=== PATIENT | male | born 1940 | race African-American/Black ===

== ENCOUNTER 2023-01-02 16:21 | Inpatient (IN) | payer OTHER ==
[2023-01-02 17:02] VITALS: BMI 31.9
[2023-01-02 17:59] LABS: PROTHROMBIN TIME (PATIENT) 11.6 SEC (9.7-13.0)
[2023-01-02 18:01] LABS: ACTIVATED PTT 31.1 SECONDS (25.2-36.5)
[2023-01-02 18:07] LABS: CHLORIDE 102 mmol/L (98-107); POTASSIUM 4.5 mmol/L (3.5-5.1); SODIUM 141 mmol/L (136-145)
[2023-01-02 18:08] LABS: MAGNESIUM 2.2 mg/dL (1.8-2.4)
[2023-01-02 18:09] LABS: ANION GAP 7 MMOL/L (8-16); CO2 33 mmol/L (21-32)
[2023-01-02 18:10] LABS: CALCIUM 9.2 mg/dL (8.5-10.1)
[2023-01-02 18:11] LABS: ALBUMIN 3.1 g/dl (3.4-5.0); BLOOD UREA NITROGEN 33.7 mg/dL (7-18); GLUCOSE,RANDOM 164 mg/dL (74-106)
[2023-01-02 18:13] LABS: SGOT/AST 27 U/L (15-37); SGPT/ALT 27 U/L (13-61)
[2023-01-02 18:14] LABS: CHOLESTEROL 193 mg/dL (50-200)
[2023-01-02 18:15] LABS: LDL CHOLESTEROL (ONLY SJRH) 114 mg/dL (5-100); TOT PROT 8.1 g/dl (6.4-8.2)
[2023-01-02 18:16] LABS: BILIRUBIN,TOTAL 0.3 mg/dL (0.2-1)
[2023-01-02 18:17] LABS: ALK PHOS 86 U/L (45-117); HDL CHOLESTEROL 60 mg/dL (40-60)
[2023-01-02] MEDS ORDERED: SODIUM CHLORIDE 0.9% 500 ML INFUS.BAG IV ONE (18:46)
[2023-01-02] MEDS ORDERED: ASPIRIN 81 MG CHEWABLE TABLETS PO ONE (19:03)
[2023-01-02 19:10] LABS: BASO % 0.4 % (0-2.0); EOS % 2.9 % (0-4.5); HEMOGLOBIN 13.8 GM/dL (11.7-16.9); LYMPH % 19.5 % (8-40); MCH 30.6 pg (25.7-33.7); MCHC 34.5 g/dl (32.0-35.9); MEAN CELL VOLUME 88.7 fl (80-96); MEAN PLT VOLUME 7.4 fl (7.5-11.1); MONO % 11.9 % (3.8-10.2); NEUT % 65.3 % (42.8-82.8); PLATELET COUNT 219 10^3/uL (134-434); RBC 4.51 M/mm3 (4.00-5.60); RDW 14.1 % (11.9-15.9); WHITE BLOOD COUNT 8.2 K/mm3 (4.0-10.0)
[2023-01-02 19:12] LABS: EPI CELLS 7 /uL (0-25.1); HYALINE CASTS 0 /uL (0-3.1); PH,URINE 6.5 (5.0-8.0); URINE APPEARANCE CLEAR; URINE BACTERIA 16 /uL (0-1359); URINE BILIRUBIN NEGATIVE (NEGATIVE); URINE COLOR YELLOW; URINE GLUCOSE (UA) NEGATIVE (NEGATIVE); URINE KETONE NEGATIVE (NEGATIVE); URINE LEUK ESTERASE NEGATIVE (NEGATIVE); URINE NITRITE NEGATIVE (NEGATIVE); URINE PROTEIN 2+ (NEGATIVE); URINE RBC 14 /uL (0-23.9); URINE UROBILINOGEN 0.2 mg/dL (0.2-1.0); URINE WBC 7 /uL (0-25.8)
[2023-01-02] MEDS ORDERED: ASPIRIN 81 MG CHEWABLE TABLETS ONE (19:17)
[2023-01-02] MEDS ORDERED: HYDROCHLOROTHIAZIDE 25 MG TABLET (FP) PO ONE (20:41)
[2023-01-02] MEDS ORDERED: amLODIPine BESYLATE 5 MG TABLET (FP) PO ONE (20:41)
[2023-01-02] MEDS ORDERED: amLODIPine BESYLATE 5 MG TABLET (FP) ONE (20:43)
[2023-01-02] MEDS ORDERED: HYDROCHLOROTHIAZIDE 25 MG TABLET (FP) ONE (20:44)
[2023-01-03] MEDS: SODIUM CHLORIDE 1,000 ML IV SCH (02:31)
[2023-01-03] MEDS: HEPARIN NA (PORCINE) 5,000 UNITS/ML 1ML VIAL SQ SCH ×3 (06:12→22:49)
[2023-01-03] MEDS: INSULIN SLIDING SCALE (NOVOLOG) 1 VIAL SQ SCH ×4 (06:16→22:50)
[2023-01-03 07:05] LABS: HEMATOCRIT 38.8 % (35.4-49); MCH 29.8 pg (25.7-33.7); MCHC 33.5 g/dl (32.0-35.9); MEAN CELL VOLUME 88.8 fl (80-96); MEAN PLT VOLUME 7.8 fl (7.5-11.1); PLATELET COUNT 244 10^3/uL (134-434); RBC 4.37 M/mm3 (4.00-5.60)
[2023-01-03 07:18] LABS: POTASSIUM 3.8 mmol/L (3.5-5.1)
[2023-01-03 07:24] LABS: CALCIUM 8.4 mg/dL (8.5-10.1); MAGNESIUM 1.9 mg/dL (1.8-2.4)
[2023-01-03 07:27] LABS: CREATININE 1.8 mg/dL (0.55-1.3); PHOSPHOROUS 3.5 mg/dL (2.5-4.9)
[2023-01-03 07:28] LABS: TOT PROT 7.6 g/dl (6.4-8.2)
[2023-01-03 07:31] LABS: BILIRUBIN,TOTAL 0.3 mg/dL (0.2-1)
[2023-01-03] MEDS: DIVALPROEX SODIUM 250 MG TABLET E.C. PO SCH ×2 (11:56→22:49)
[2023-01-03] MEDS: SERTRALINE HCL 25 MG TABLET (FP) PO SCH (11:56)
[2023-01-03] MEDS: ASPIRIN 81 MG CHEWABLE TABLETS PO SCH (11:56)
[2023-01-03] MEDS: FINASTERIDE 5 MG TABLET (FP) PO SCH (11:56)
[2023-01-03] MEDS: TAMSULOSIN HCL 0.4 MG CAP PO SCH (11:56)
[2023-01-03] MEDS ORDERED: metoPROLOL SUCCINATE 25 MG TAB.SR.24H (FP) PO ONE (15:51)
[2023-01-03] MEDS ORDERED: ATORVASTATIN CA 40 MG TABLET (FP) PO SCH (22:00)
[2023-01-03] MEDS ORDERED: DONEPEZIL HCL 5 MG TABLET (FP) PO SCH (22:00)
[2023-01-04] MEDS: SODIUM CHLORIDE 1,000 ML IV SCH (05:40)
[2023-01-04] MEDS: HEPARIN NA (PORCINE) 5,000 UNITS/ML 1ML VIAL SQ SCH ×2 (05:40→22:32)
[2023-01-04] MEDS: INSULIN SLIDING SCALE (NOVOLOG) 1 VIAL SQ SCH ×4 (06:36→22:34)
[2023-01-04] MEDS: TAMSULOSIN HCL 0.4 MG CAP PO SCH (09:31)
[2023-01-04] MEDS: DIVALPROEX SODIUM 250 MG TABLET E.C. PO SCH ×2 (09:31→22:36)
[2023-01-04] MEDS: SERTRALINE HCL 25 MG TABLET (FP) PO SCH (09:31)
[2023-01-04] MEDS: metoPROLOL SUCCINATE 25 MG TAB.SR.24H (FP) PO SCH (09:31)
[2023-01-04] MEDS: FINASTERIDE 5 MG TABLET (FP) PO SCH (09:31)
[2023-01-04] MEDS: ASPIRIN 81 MG CHEWABLE TABLETS PO SCH (09:31)
[2023-01-04] MEDS ORDERED: CLOPIDOGREL BISULFATE 75 MG TABLET (FP) PO ONE (11:29)
[2023-01-04] MEDS: ATORVASTATIN CA 80 MG TABLET (FP) PO SCH (22:36)
[2023-01-04] MEDS: ASCORBIC ACID 250 MG TABLET (FP) PO SCH (22:36)
[2023-01-04] MEDS: DONEPEZIL HCL 10 MG TABLET (FP) PO SCH (22:36)
[2023-01-05] MEDS: INSULIN SLIDING SCALE (NOVOLOG) 1 VIAL SQ SCH ×4 (06:07→22:37)
[2023-01-05] MEDS: ASPIRIN 81 MG CHEWABLE TABLETS PO SCH (10:18)
[2023-01-05] MEDS: DIVALPROEX SODIUM 250 MG TABLET E.C. PO SCH ×2 (10:18→22:36)
[2023-01-05] MEDS: TAMSULOSIN HCL 0.4 MG CAP PO SCH (10:18)
[2023-01-05] MEDS: FINASTERIDE 5 MG TABLET (FP) PO SCH (10:19)
[2023-01-05] MEDS: metoPROLOL SUCCINATE 25 MG TAB.SR.24H (FP) PO SCH (10:19)
[2023-01-05] MEDS: ASCORBIC ACID 250 MG TABLET (FP) PO SCH ×2 (10:19→22:37)
[2023-01-05] MEDS: CLOPIDOGREL BISULFATE 75 MG TABLET (FP) PO SCH (10:19)
[2023-01-05] MEDS: MULTIVITAMINS (DAILY MVI) TABLET (FP) PO SCH (10:19)
[2023-01-05] MEDS: HEPARIN NA (PORCINE) 5,000 UNITS/ML 1ML VIAL SQ SCH ×2 (10:19→22:36)
[2023-01-05] MEDS: LISINOPRIL 5 MG TABLET PO SCH (11:36)
[2023-01-05 13:21] LABS: BASO % 0.2 % (0-2.0); EOS % 1.5 % (0-4.5); HEMATOCRIT 38.5 % (35.4-49); HEMOGLOBIN 12.1 GM/dL (11.7-16.9); MCHC 31.4 g/dl (32.0-35.9); MEAN CELL VOLUME 92.5 fl (80-96); MEAN PLT VOLUME 7.6 fl (7.5-11.1); MONO % 13.5 % (3.8-10.2); NEUT % 61.8 % (42.8-82.8); PLATELET COUNT 214 10^3/uL (134-434); RBC 4.16 M/mm3 (4.00-5.60); RDW 14.2 % (11.9-15.9); WHITE BLOOD COUNT 7.3 K/mm3 (4.0-10.0)
[2023-01-05 13:50] LABS: POTASSIUM 4.2 mmol/L (3.5-5.1)
[2023-01-05 13:52] LABS: CALCIUM 8.4 mg/dL (8.5-10.1)
[2023-01-05 13:53] LABS: ALBUMIN 2.8 g/dl (3.4-5.0); BLOOD UREA NITROGEN 54.4 mg/dL (7-18); MAGNESIUM 2.4 mg/dL (1.8-2.4)
[2023-01-05 13:56] LABS: CREATININE 2.5 mg/dL (0.55-1.3); PHOSPHOROUS 5.7 mg/dL (2.5-4.9)
[2023-01-05 13:58] LABS: BILIRUBIN,TOTAL 0.2 mg/dL (0.2-1)
[2023-01-05] MEDS: SODIUM CHLORIDE 0.45% 1,000 ML IV SCH (16:42)
[2023-01-05 17:03] LABS: N-TERMINAL BNP 740.1 pg/ml (5-450)
[2023-01-05] MEDS: DONEPEZIL HCL 10 MG TABLET (FP) PO SCH (22:36)
[2023-01-05] MEDS: ATORVASTATIN CA 80 MG TABLET (FP) PO SCH (22:37)
[2023-01-06] MEDS: SODIUM CHLORIDE 0.45% 1,000 ML IV SCH ×2 (06:07→17:27)
[2023-01-06] MEDS: INSULIN SLIDING SCALE (NOVOLOG) 1 VIAL SQ SCH ×4 (06:11→22:52)
[2023-01-06] MEDS: HEPARIN NA (PORCINE) 5,000 UNITS/ML 1ML VIAL SQ SCH ×2 (09:50→22:53)
[2023-01-06] MEDS: ASCORBIC ACID 250 MG TABLET (FP) PO SCH ×2 (09:51→22:54)
[2023-01-06] MEDS: ASPIRIN 81 MG CHEWABLE TABLETS PO SCH (09:51)
[2023-01-06] MEDS: DIVALPROEX SODIUM 250 MG TABLET E.C. PO SCH ×2 (09:51→22:55)
[2023-01-06] MEDS: MULTIVITAMINS (DAILY MVI) TABLET (FP) PO SCH (09:51)
[2023-01-06] MEDS: LISINOPRIL 5 MG TABLET PO SCH (09:51)
[2023-01-06] MEDS: FINASTERIDE 5 MG TABLET (FP) PO SCH (09:51)
[2023-01-06] MEDS: metoPROLOL SUCCINATE 25 MG TAB.SR.24H (FP) PO SCH (09:51)
[2023-01-06] MEDS: CLOPIDOGREL BISULFATE 75 MG TABLET (FP) PO SCH (09:51)
[2023-01-06] MEDS: TAMSULOSIN HCL 0.4 MG CAP PO SCH (09:52)
[2023-01-06 18:20] LABS: POTASSIUM 4.2 mmol/L (3.5-5.1)
[2023-01-06 18:22] LABS: ALBUMIN 2.4 g/dl (3.4-5.0); CALCIUM 7.8 mg/dL (8.5-10.1)
[2023-01-06 18:26] LABS: CREATININE 2.6 mg/dL (0.55-1.3)
[2023-01-06 18:27] LABS: BILIRUBIN,TOTAL 0.1 mg/dL (0.2-1); TOT PROT 6.2 g/dl (6.4-8.2)
[2023-01-06] MEDS: ATORVASTATIN CA 80 MG TABLET (FP) PO SCH (22:54)
[2023-01-06] MEDS: DONEPEZIL HCL 10 MG TABLET (FP) PO SCH (22:54)
[2023-01-07] MEDS: SODIUM CHLORIDE 0.45% 1,000 ML IV SCH (06:45)
[2023-01-07] MEDS: INSULIN SLIDING SCALE (NOVOLOG) 1 VIAL SQ SCH ×4 (06:54→22:22)
[2023-01-07] MEDS: DIVALPROEX SODIUM 250 MG TABLET E.C. PO SCH ×2 (09:02→22:21)
[2023-01-07] MEDS: LISINOPRIL 5 MG TABLET PO SCH (09:02)
[2023-01-07] MEDS: ASCORBIC ACID 250 MG TABLET (FP) PO SCH ×2 (09:02→22:21)
[2023-01-07] MEDS: CLOPIDOGREL BISULFATE 75 MG TABLET (FP) PO SCH (09:02)
[2023-01-07] MEDS: ASPIRIN 81 MG CHEWABLE TABLETS PO SCH (09:02)
[2023-01-07] MEDS: metoPROLOL SUCCINATE 25 MG TAB.SR.24H (FP) PO SCH (09:02)
[2023-01-07] MEDS: HEPARIN NA (PORCINE) 5,000 UNITS/ML 1ML VIAL SQ SCH ×2 (09:02→22:20)
[2023-01-07] MEDS: TAMSULOSIN HCL 0.4 MG CAP PO SCH (09:02)
[2023-01-07] MEDS: MULTIVITAMINS (DAILY MVI) TABLET (FP) PO SCH (09:02)
[2023-01-07] MEDS: FINASTERIDE 5 MG TABLET (FP) PO SCH (09:02)
[2023-01-07] MEDS ORDERED: ACETAMINOPHEN 325 MG TABLET (FP) PO PRN (10:31)
[2023-01-07] MEDS ORDERED: hydrALAZINE HCL 25 MG TABLET (FP) PO ONE (10:31)
[2023-01-07 12:18] LABS: POTASSIUM 4.2 mmol/L (3.5-5.1)
[2023-01-07 12:21] LABS: BLOOD UREA NITROGEN 56.1 mg/dL (7-18)
[2023-01-07 12:24] LABS: CREATININE 2.3 mg/dL (0.55-1.3)
[2023-01-07] MEDS: ATORVASTATIN CA 80 MG TABLET (FP) PO SCH (22:20)
[2023-01-07] MEDS: hydrALAZINE HCL 25 MG TABLET (FP) PO SCH (22:21)
[2023-01-07] MEDS: DONEPEZIL HCL 10 MG TABLET (FP) PO SCH (22:21)
[2023-01-08] MEDS: INSULIN SLIDING SCALE (NOVOLOG) 1 VIAL SQ SCH ×4 (06:36→21:48)
[2023-01-08] MEDS: DIVALPROEX SODIUM 250 MG TABLET E.C. PO SCH ×2 (09:57→21:49)
[2023-01-08] MEDS: CLOPIDOGREL BISULFATE 75 MG TABLET (FP) PO SCH (09:57)
[2023-01-08] MEDS: metoPROLOL SUCCINATE 25 MG TAB.SR.24H (FP) PO SCH (09:57)
[2023-01-08] MEDS: hydrALAZINE HCL 25 MG TABLET (FP) PO SCH ×2 (09:57→21:49)
[2023-01-08] MEDS: LISINOPRIL 5 MG TABLET PO SCH (09:57)
[2023-01-08] MEDS: FINASTERIDE 5 MG TABLET (FP) PO SCH (09:57)
[2023-01-08] MEDS: ASPIRIN 81 MG CHEWABLE TABLETS PO SCH (09:57)
[2023-01-08] MEDS: MULTIVITAMINS (DAILY MVI) TABLET (FP) PO SCH (09:57)
[2023-01-08] MEDS: TAMSULOSIN HCL 0.4 MG CAP PO SCH (09:57)
[2023-01-08] MEDS: ASCORBIC ACID 250 MG TABLET (FP) PO SCH ×2 (09:58→21:49)
[2023-01-08] MEDS: HEPARIN NA (PORCINE) 5,000 UNITS/ML 1ML VIAL SQ SCH ×2 (09:58→21:49)
[2023-01-08] MEDS: ATORVASTATIN CA 80 MG TABLET (FP) PO SCH (21:49)
[2023-01-08] MEDS: DONEPEZIL HCL 10 MG TABLET (FP) PO SCH (21:49)
[2023-01-09 05:24] VITALS: PULSE 67
[2023-01-09] MEDS: INSULIN SLIDING SCALE (NOVOLOG) 1 VIAL SQ SCH ×2 (06:03→12:03)
[2023-01-09 08:45] VITALS: BP 169/67; RESP 18; TEMP 97.6
[2023-01-09] MEDS: ASPIRIN 81 MG CHEWABLE TABLETS PO SCH (10:11)
[2023-01-09] MEDS: LISINOPRIL 5 MG TABLET PO SCH (10:12)
[2023-01-09] MEDS: MULTIVITAMINS (DAILY MVI) TABLET (FP) PO SCH (10:12)
[2023-01-09] MEDS: metoPROLOL SUCCINATE 25 MG TAB.SR.24H (FP) PO SCH (10:12)
[2023-01-09] MEDS: FINASTERIDE 5 MG TABLET (FP) PO SCH (10:12)
[2023-01-09] MEDS: TAMSULOSIN HCL 0.4 MG CAP PO SCH (10:12)
[2023-01-09] MEDS: HEPARIN NA (PORCINE) 5,000 UNITS/ML 1ML VIAL SQ SCH (10:12)
[2023-01-09] MEDS: DIVALPROEX SODIUM 250 MG TABLET E.C. PO SCH (10:13)
[2023-01-09] MEDS: hydrALAZINE HCL 25 MG TABLET (FP) PO SCH (10:13)
[2023-01-09] MEDS: CLOPIDOGREL BISULFATE 75 MG TABLET (FP) PO SCH (10:13)
[2023-01-09] MEDS: ASCORBIC ACID 250 MG TABLET (FP) PO SCH (10:13)
== END 2023-01-09 13:38 | DRG 65 ==
LOC: JER 16:21 → JERBED 18:24 → J4S 01-03 02:11
PROVIDERS: ADMIT Internal Medicine; ATTEND Internal Medicine
DX: I63.9 Cerebral infarction, unspecified (principal); G81.94 Hemiplegia, unspecified affecting left nondominant side; I24.8 Other forms of acute ischemic heart disease; N17.9 Acute kidney failure, unspecified; I50.22 Chronic systolic (congestive) heart failure; I13.2 Hypertensive heart and chronic kidney disease with heart failure and with stage 5 chronic kidney disease, or end stage renal disease; I16.0 Hypertensive urgency; N18.9 Chronic kidney disease, unspecified; F03.90 Unspecified dementia, unspecified severity, without behavioral disturbance, psychotic disturbance, mood disturbance, and anxiety; L89.222 Pressure ulcer of left hip, stage 2; E11.9 Type 2 diabetes mellitus without complications; E78.5 Hyperlipidemia, unspecified; E66.9 Obesity, unspecified; Z68.32 Body mass index [BMI] 32.0-32.9, adult
CPT/HCPCS: 36415; 70450-TC; 70551-TC; 71045-TC-FY; 76775-TC; 80048; 80053; 80061; 81003; 82550; 82553; 82962; 83036; 83605; 83735; 83880; 84100; 84436; 84443; 84484; 85025; 85027; 85610; 85730; 86850; 86900; 86901; 87086; 87635; 93005; 93010; 93306-TC; 93880-TC; 97116-GP; 97161-GP; 99291; J1644

== ENCOUNTER 2023-07-12 02:34 | Inpatient (IN) | payer OTHER ==
[2023-07-12 02:44] VITALS: BMI 28.2
[2023-07-12 03:14] LABS: BASO % 0.6 % (0-2.0); EOS % 3.8 % (0-4.5); HEMATOCRIT 22.3 % (35.4-49); HEMOGLOBIN 7.4 GM/dL (11.7-16.9); LYMPH % 20.5 % (8-40); MCH 28.9 pg (25.7-33.7); MCHC 33.1 g/dl (32.0-35.9); MEAN CELL VOLUME 87.6 fl (80-96); MONO % 7.8 % (3.8-10.2); NEUT % 67.3 % (42.8-82.8); PLATELET COUNT 456 10^3/uL (134-434); RBC 2.55 M/mm3 (4.00-5.60); RDW 16.8 % (11.9-15.9); WHITE BLOOD COUNT 6.9 K/mm3 (4.0-10.0)
[2023-07-12 03:20] LABS: MEAN PLT VOLUME 5.7 fl (7.5-11.1)
[2023-07-12 03:22] LABS: INR 1.44 (0.83-1.09); PROTHROMBIN TIME (PATIENT) 16.6 SEC (9.7-13.0)
[2023-07-12 03:25] LABS: ACTIVATED PTT 36.3 SECONDS (25.2-36.5)
[2023-07-12 03:33] LABS: POTASSIUM 4.2 mmol/L (3.5-5.1)
[2023-07-12 03:37] LABS: ALBUMIN 1.7 g/dl (3.4-5.0); BLOOD UREA NITROGEN 28.7 mg/dL (7-18); CALCIUM 7.9 mg/dL (8.5-10.1)
[2023-07-12 03:40] LABS: CREATININE 1.7 mg/dL (0.55-1.3)
[2023-07-12 03:42] LABS: BILIRUBIN,TOTAL 0.2 mg/dL (0.2-1); TOT PROT 7.4 g/dl (6.4-8.2)
[2023-07-12] MEDS ORDERED: ACETAMINOPHEN 1000 MG/100 ML BAG IVPB PRN (06:26)
[2023-07-12] MEDS ORDERED: TAMSULOSIN HCL 0.4 MG CAP ONE (07:44)
[2023-07-12] MEDS: INSULIN ASPART SLIDING SCALE (NOVOLOG) 1 VIAL SQ SCH ×2 (07:55→11:05)
[2023-07-12] MEDS: TAMSULOSIN HCL 0.4 MG CAP PO SCH (07:55)
[2023-07-12] MEDS: IRON SUCROSE INJECTION 200 MG in SODIUM CHLORIDE 90 ML IVPB ONE (08:53)
[2023-07-12 10:11] LABS: RETICULOCYTES 3.61 % (0.5-1.5)
[2023-07-12] MEDS: metoPROLOL SUCCINATE 25 MG TAB.SR.24H (FP) PO SCH (10:36)
[2023-07-12] MEDS: hydrALAZINE HCL 25 MG TABLET (FP) PO SCH (10:36)
[2023-07-12] MEDS: PANTOPRAZOLE SODIUM 40 MG VIAL IVPUSH SCH (10:36)
[2023-07-12] MEDS: DIVALPROEX SODIUM 250 MG TABLET E.C. PO SCH (10:36)
[2023-07-12] MEDS: FINASTERIDE 5 MG TABLET (FP) PO SCH (10:36)
[2023-07-12 12:16] LABS: HEMATOCRIT 20.1 % (35.4-49); MCH 30.3 pg (25.7-33.7); MCHC 34.7 g/dl (32.0-35.9); MEAN CELL VOLUME 87.3 fl (80-96); MEAN PLT VOLUME 5.9 fl (7.5-11.1); PLATELET COUNT 497 10^3/uL (134-434); RBC 2.31 M/mm3 (4.00-5.60); RDW 16.4 % (11.9-15.9); WHITE BLOOD COUNT 6.8 K/mm3 (4.0-10.0)
[2023-07-12] MEDS: ATORVASTATIN CA 80 MG TABLET (FP) PO SCH (23:04)
[2023-07-12] MEDS: DONEPEZIL HCL 10 MG TABLET (FP) PO SCH (23:04)
[2023-07-12] MEDS: INSULIN (LEVEMIR) 100 UNITS/ML UNITS SQ SCH (23:26)
[2023-07-13] MEDS: LATANOPROST 0.005% OPHTH SOLN 2.5ML BOTTLE OD SCH (00:35)
[2023-07-13 10:03] LABS: BASO % 0.4 % (0-2.0); HEMATOCRIT 29.4 % (35.4-49); HEMOGLOBIN 9.7 GM/dL (11.7-16.9); LYMPH % 21.9 % (8-40); MCH 28.2 pg (25.7-33.7); MCHC 33.2 g/dl (32.0-35.9); MEAN CELL VOLUME 85.1 fl (80-96); MEAN PLT VOLUME 6.1 fl (7.5-11.1); MONO % 8.9 % (3.8-10.2); NEUT % 63.8 % (42.8-82.8); PLATELET COUNT 444 10^3/uL (134-434); RBC 3.45 M/mm3 (4.00-5.60); RDW 17.8 % (11.9-15.9); WHITE BLOOD COUNT 6.8 K/mm3 (4.0-10.0)
[2023-07-13 10:24] LABS: POTASSIUM 4.2 mmol/L (3.5-5.1)
[2023-07-13 10:35] LABS: ALBUMIN 1.7 g/dl (3.4-5.0); BLOOD UREA NITROGEN 22.4 mg/dL (7-18); CALCIUM 7.7 mg/dL (8.5-10.1)
[2023-07-13 10:38] LABS: CREATININE 1.4 mg/dL (0.55-1.3)
[2023-07-13 10:40] LABS: BILIRUBIN,TOTAL 0.4 mg/dL (0.2-1); TOT PROT 7.3 g/dl (6.4-8.2)
[2023-07-13] MEDS: ACETAMINOPHEN 325 MG TABLET (FP) PO PRN (11:11)
[2023-07-14 13:55] VITALS: BP 142/66; PULSE 73; RESP 18; TEMP 98
[2023-07-14] MEDS ORDERED: PANTOPRAZOLE 40 MG TABLET PO SCH (14:48)
== END 2023-07-14 14:55 | DRG 812 ==
LOC: JER 02:34 → JERBED 05:52 → J6S 09:55 → OBSVTOIN 07-13 09:01
PROVIDERS: ADMIT Internal Medicine; ATTEND Internal Medicine
PROC: 30233N1 Transfusion of Nonautologous Red Blood Cells into Peripheral Vein, Percutaneous Approach (ICD-10-PCS; principal; 2023-07-12)
DX: D64.9 Anemia, unspecified (principal); I13.0 Hypertensive heart and chronic kidney disease with heart failure and stage 1 through stage 4 chronic kidney disease, or unspecified chronic kidney disease; E78.00 Pure hypercholesterolemia, unspecified; N40.0 Benign prostatic hyperplasia without lower urinary tract symptoms; F03.90 Unspecified dementia, unspecified severity, without behavioral disturbance, psychotic disturbance, mood disturbance, and anxiety; E11.51 Type 2 diabetes mellitus with diabetic peripheral angiopathy without gangrene; E11.22 Type 2 diabetes mellitus with diabetic chronic kidney disease; T45.515A Adverse effect of anticoagulants, initial encounter; J44.9 Chronic obstructive pulmonary disease, unspecified; L89.620 Pressure ulcer of left heel, unstageable; L89.610 Pressure ulcer of right heel, unstageable; N18.9 Chronic kidney disease, unspecified; I50.9 Heart failure, unspecified; I25.10 Atherosclerotic heart disease of native coronary artery without angina pectoris; E78.5 Hyperlipidemia, unspecified; I35.0 Nonrheumatic aortic (valve) stenosis; F41.9 Anxiety disorder, unspecified; E66.9 Obesity, unspecified; Z68.28 Body mass index [BMI] 28.0-28.9, adult; R29.810 Facial weakness
CPT/HCPCS: 36415; 36430; 71045-TC-FY; 80048; 80053; 82272; 82607; 82728; 82962; 83540; 83550; 83615; 84484; 85025; 85027; 85045; 85610; 85730; 86850; 86900; 86901; 86922; 93005; 93010; 93925-TC; 99285-25; G0378; J1756; P9058

== ENCOUNTER 2023-12-26 12:45 | Emergency (ER) | payer OTHER ==
[2023-12-26 13:38] VITALS: BMI 25.8
[2023-12-26 15:28] LABS: BASO % 0.2 % (0-2.0); EOS % 0.4 % (0-4.5); LYMPH % 13.1 % (8-40); MCH 29.4 pg (25.7-33.7); MCHC 33.4 g/dl (32.0-35.9); MONO % 6.9 % (3.8-10.2); NEUT % 79.4 % (42.8-82.8); PLATELET COUNT 499 10^3/uL (134-434); RBC 2.73 M/mm3 (4.00-5.60); RDW 17.4 % (11.9-15.9); WHITE BLOOD COUNT 10.5 K/mm3 (4.0-10.0)
[2023-12-26 15:30] LABS: MEAN PLT VOLUME 5.7 fl (7.5-11.1)
[2023-12-26 15:34] LABS: INR 1.44 (0.83-1.09); PROTHROMBIN TIME (PATIENT) 16.1 SEC (9.7-13.0)
[2023-12-26 15:37] LABS: ACTIVATED PTT 60.6 SECONDS (25.2-36.5)
[2023-12-26 20:01] LABS: POTASSIUM 4.5 mmol/L (3.5-5.1)
[2023-12-26 20:02] LABS: ALBUMIN 1.5 g/dl (3.4-5.0); BLOOD UREA NITROGEN 18.7 mg/dL (7-18)
[2023-12-26 20:12] LABS: BILIRUBIN,TOTAL 0.3 mg/dL (0.2-1); CREATININE 1.4 mg/dL (0.55-1.3); TOT PROT 8.4 g/dl (6.4-8.2)
[2023-12-27 01:59] VITALS: BP 170/71; PULSE 82; RESP 19; TEMP 97.6
== END 2023-12-27 01:59 ==
LOC: JER 12:45
PROC: 30233N1 Transfusion of Nonautologous Red Blood Cells into Peripheral Vein, Percutaneous Approach (ICD-10-PCS; principal; 2023-12-26)
DX: D64.9 Anemia, unspecified (principal)
CPT/HCPCS: 36415; 36430; 80053; 82272; 85025; 85610; 85730; 86850; 86900; 86901; 86922; 93005; 93010; 99285-25; P9038; P9058

== ENCOUNTER 2024-01-03 14:00 | Inpatient (IN) | payer OTHER ==
[2024-01-03] MEDS ORDERED: DEXTROSE 50%-WATER 25 GM/50 ML DISP.SYRIN ONE (14:43)
[2024-01-03] MEDS: DEXTROSE 50%-WATER 25 GM/50 ML DISP.SYRIN IVPUSH ONE (14:46)
[2024-01-03 15:20] LABS: BASO % 0.6 % (0-2.0); EOS % 0.3 % (0-4.5); HEMATOCRIT 23.9 % (35.4-49); HEMOGLOBIN 7.7 GM/dL (11.7-16.9); LYMPH % 10.1 % (8-40); MCH 29.1 pg (25.7-33.7); MCHC 32.1 g/dl (32.0-35.9); MEAN CELL VOLUME 90.6 fl (80-96); MEAN PLT VOLUME 5.9 fl (7.5-11.1); MONO % 6.8 % (3.8-10.2); NEUT % 82.2 % (42.8-82.8); PLATELET COUNT 521 10^3/uL (134-434); RBC 2.64 M/mm3 (4.00-5.60); RDW 17.1 % (11.9-15.9)
[2024-01-03 15:36] LABS: ACTIVATED PTT 46.9 SECONDS (25.2-36.5); INR 1.46 (0.83-1.09); PROTHROMBIN TIME (PATIENT) 16.3 SEC (9.7-13.0)
[2024-01-03 15:39] LABS: POTASSIUM 4.2 mmol/L (3.5-5.1)
[2024-01-03 15:42] LABS: ALBUMIN 1.3 g/dl (3.4-5.0); BLOOD UREA NITROGEN 23.1 mg/dL (7-18); MAGNESIUM 2.2 mg/dL (1.8-2.4)
[2024-01-03 15:45] LABS: CREATININE 1.2 mg/dL (0.55-1.3)
[2024-01-03 15:46] LABS: BILIRUBIN,TOTAL 0.2 mg/dL (0.2-1); TOT PROT 7.6 g/dl (6.4-8.2)
[2024-01-03 15:46] LABS: EPI CELLS 5 /uL (0-25.1); HYALINE CASTS 3 /uL (0-3.1); URINE APPEARANCE CLOUDY; URINE BACTERIA >9,000 /uL (0-1359); URINE BILIRUBIN NEGATIVE (NEGATIVE); URINE COLOR YELLOW; URINE GLUCOSE (UA) NEGATIVE (NEGATIVE); URINE KETONE NEGATIVE (NEGATIVE); URINE LEUK ESTERASE 3+ (NEGATIVE); URINE NITRITE NEGATIVE (NEGATIVE); URINE PROTEIN 1+ (NEGATIVE); URINE WBC 492 /uL (0-25.8)
[2024-01-03] MEDS ORDERED: CEFTRIAXONE 1 GM/50 ML BAG ONE (17:22)
[2024-01-03] MEDS: CEFTRIAXONE 1 GM in DEXTROSE 5%-WATER - 100 ML IVPB ONE (17:23)
[2024-01-03 18:43] LABS: URINE RBC 74.9 /uL (0-23.9); YEAST NONE SEEN (NEGATIVE)
[2024-01-03] MEDS ORDERED: HEPARIN NA (PORCINE) 5,000 UNITS/ML 1ML VIAL SQ SCH (22:00)
[2024-01-03] MEDS ORDERED: DONEPEZIL HCL 5 MG TABLET (FP) ONE (22:45)
[2024-01-03] MEDS ORDERED: ATORVASTATIN CA 40 MG TABLET (FP) ONE (22:45)
[2024-01-03] MEDS: DONEPEZIL HCL 10 MG TABLET (FP) PO SCH (22:53)
[2024-01-03] MEDS: ATORVASTATIN CA 80 MG TABLET (FP) PO SCH (22:53)
[2024-01-04 09:37] LABS: BASO % 0.4 % (0-2.0); EOS % 0.4 % (0-4.5); HEMATOCRIT 28.9 % (35.4-49); HEMOGLOBIN 9.6 GM/dL (11.7-16.9); MCH 28.5 pg (25.7-33.7); MCHC 33.3 g/dl (32.0-35.9); MEAN CELL VOLUME 85.6 fl (80-96); MONO % 6.6 % (3.8-10.2); NEUT % 84.6 % (42.8-82.8); PLATELET COUNT 460 10^3/uL (134-434); RBC 3.37 M/mm3 (4.00-5.60); RDW 19.1 % (11.9-15.9); WHITE BLOOD COUNT 14.9 K/mm3 (4.0-10.0)
[2024-01-04 09:40] LABS: MEAN PLT VOLUME 5.7 fl (7.5-11.1)
[2024-01-04 10:22] LABS: CALCIUM 7.8 mg/dL (8.5-10.1); POTASSIUM 3.7 mmol/L (3.5-5.1)
[2024-01-04] MEDS: PANTOPRAZOLE SODIUM 40 MG VIAL IVPUSH SCH (10:34)
[2024-01-04] MEDS: metoPROLOL SUCCINATE 25 MG TAB.SR.24H (FP) PO SCH (10:34)
[2024-01-04] MEDS: TAMSULOSIN HCL 0.4 MG CAP PO SCH (10:34)
[2024-01-04 10:42] LABS: ALBUMIN 1.3 g/dl (3.4-5.0); BILIRUBIN,TOTAL 0.5 mg/dL (0.2-1); BLOOD UREA NITROGEN 22.3 mg/dL (7-18); CREATININE 1.1 mg/dL (0.55-1.3); TOT PROT 7.4 g/dl (6.4-8.2)
[2024-01-04] MEDS: CEFTRIAXONE 1 GM in DEXTROSE 5%-WATER - 50 ML IVPB SCH (12:34)
[2024-01-04 13:48] LABS: RETICULOCYTES 2.04 % (0.5-1.5)
[2024-01-04 16:06] VITALS: BMI 22.3
[2024-01-04 19:00] VITALS: RESP 18
[2024-01-05] MEDS: AMINO ACIDS/PROTEIN HYDROLYS 30 ML LIQUID.PKT PO SCH (08:49)
[2024-01-05] MEDS: PANTOPRAZOLE 40 MG TABLET PO SCH (10:06)
[2024-01-05] MEDS: ASCORBIC ACID 500 MG TABLET (FP) PO SCH (10:06)
[2024-01-05] MEDS: MULTIVITAMINS (DAILY MVI) TABLET (FP) PO SCH (10:06)
[2024-01-05 10:53] LABS: HEMATOCRIT 26.4 % (35.4-49); HEMOGLOBIN 8.6 GM/dL (11.7-16.9); MCHC 32.6 g/dl (32.0-35.9); MEAN PLT VOLUME 5.8 fl (7.5-11.1); PLATELET COUNT 450 10^3/uL (134-434); RBC 3.08 M/mm3 (4.00-5.60); RDW 19.2 % (11.9-15.9)
[2024-01-05 11:56] LABS: ANISOCYTOSIS 2+; MACROCYTOSIS 0
[2024-01-05] MEDS: FUROSEMIDE 20 MG TABLET (FP) PO SCH (15:47)
[2024-01-06 08:58] LABS: BASO % 0.3 % (0-2.0); EOS % 0.5 % (0-4.5); HEMATOCRIT 25.4 % (35.4-49); HEMOGLOBIN 8.5 GM/dL (11.7-16.9); LYMPH % 12.7 % (8-40); MCH 28.7 pg (25.7-33.7); MCHC 33.4 g/dl (32.0-35.9); MONO % 6.3 % (3.8-10.2); NEUT % 80.2 % (42.8-82.8); PLATELET COUNT 414 10^3/uL (134-434); RBC 2.95 M/mm3 (4.00-5.60); RDW 18.7 % (11.9-15.9); WHITE BLOOD COUNT 9.4 K/mm3 (4.0-10.0)
[2024-01-06 09:17] LABS: POTASSIUM 3.7 mmol/L (3.5-5.1)
[2024-01-06 09:21] LABS: ALBUMIN 1.1 g/dl (3.4-5.0); BLOOD UREA NITROGEN 22.8 mg/dL (7-18); CALCIUM 7.6 mg/dL (8.5-10.1)
[2024-01-06 09:26] LABS: BILIRUBIN,TOTAL 0.4 mg/dL (0.2-1); TOT PROT 6.5 g/dl (6.4-8.2)
[2024-01-06 16:34] VITALS: BP 148/62; PULSE 78; TEMP 98.1
[2024-01-08 15:07] LABS: FREE KAPPA,SERUM 269.7 mg/L (3.3-19.4)
[2024-01-08 18:08] LABS: IG A QN SERUM. 423 mg/dL (61-437)
== END 2024-01-06 17:47 | DRG 812 ==
LOC: JER 14:00 → JERBED 17:30 → J5S 23:35 → OBSVTOIN 01-04 09:44
PROVIDERS: ADMIT Internal Medicine; ATTEND Internal Medicine
PROC: 30233N1 Transfusion of Nonautologous Red Blood Cells into Peripheral Vein, Percutaneous Approach (ICD-10-PCS; principal; 2024-01-03)
DX: D64.9 Anemia, unspecified (principal); I13.0 Hypertensive heart and chronic kidney disease with heart failure and stage 1 through stage 4 chronic kidney disease, or unspecified chronic kidney disease; N39.0 Urinary tract infection, site not specified; F03.90 Unspecified dementia, unspecified severity, without behavioral disturbance, psychotic disturbance, mood disturbance, and anxiety; N40.0 Benign prostatic hyperplasia without lower urinary tract symptoms; E78.00 Pure hypercholesterolemia, unspecified; E11.51 Type 2 diabetes mellitus with diabetic peripheral angiopathy without gangrene; F41.9 Anxiety disorder, unspecified; R77.8 Other specified abnormalities of plasma proteins; I25.10 Atherosclerotic heart disease of native coronary artery without angina pectoris; J44.9 Chronic obstructive pulmonary disease, unspecified; E11.22 Type 2 diabetes mellitus with diabetic chronic kidney disease; N18.9 Chronic kidney disease, unspecified; I50.9 Heart failure, unspecified; B95.1 Streptococcus, group B, as the cause of diseases classified elsewhere; Z86.73 Personal history of transient ischemic attack (TIA), and cerebral infarction without residual deficits
CPT/HCPCS: 36415; 36430; 71045-TC-FY; 80053; 81003; 82607; 82728; 82747; 82784; 82962; 83540; 83550; 83615; 83735; 83880; 83883; 84155; 84165; 84443; 84484; 85014; 85025; 85045; 85610; 85730; 86850; 86900; 86901; 86922; 87077; 87086; 88300-TC; 93005; 93010; 93306-TC; 99285-25; G0378; P9038; P9058